=== PATIENT | female | born 1950 | race Caucasian/White ===

== ENCOUNTER 2019-07-01 20:25 | Emergency (ER) | payer OTHER, BC ==
[~2019-07-01] VITALS: Ht 157.5 cm; Wt 86.2 kg
[2019-07-01 21:50] LABS: BASOPHILS 0.8 % (0.0-2.0); EOSINOPHILS 0.3 % (0.0-3.0); HEMATOCRIT 38.7 % (37.0-47.0); HEMOGLOBIN 13.1 gm/dL (12.0-15.0); LYMPHOCYTES 44.1 % (24.0-44.0); MCH 28.7 pg (26.0-34.0); MCHC 33.8 g/dL (28.0-37.0); MCV 84.7 fL (80.0-100.0); MONOCYTES 7.6 % (1.0-8.0); PLATELET COUNT 162 thou/uL (150-400); POLYS 47.2 % (36.0-66.0); RBC 4.57 mil/uL (4.20-5.00); RDW 15.3 % (10.5-14.5); WBC 8.4 thou/uL (4.0-11.0)
[2019-07-01 21:51] LABS: CALCIUM 8.7 mg/dL (8.5-10.1); CREATININE 1.4 mg/dL (0.6-1.0); POTASSIUM 3.6 mmol/L (3.5-5.1)
[2019-07-01] MEDS ORDERED: LEVOXYL112 MCG PO (22:01)
[2019-07-01] MEDS ORDERED: LOPRESSOR50 PO (22:01)
[2019-07-01] MEDS ORDERED: IBUPROFEN 800800 M1 PO (22:02)
[2019-07-01] MEDS ORDERED: ZOCOR20 MG PO (22:02)
[2019-07-01] MEDS ORDERED: POTASSIUM20 PO (22:03)
[2019-07-01] MEDS ORDERED: LASIX 20 MG TAB20 MG PO (22:03)
[2019-07-01 23:07] VITALS: BP 116/59
== END 2019-07-01 23:08 | disposition home or self-care (01) ==
LOC: ER 20:25
PROVIDERS: Emergency Medicine
DX: G43.909 Migraine, unspecified, not intractable, without status migrainosus (principal); R19.7 Diarrhea, unspecified; I10 Essential (primary) hypertension; E78.00 Pure hypercholesterolemia, unspecified; E03.9 Hypothyroidism, unspecified; Z96.651 Presence of right artificial knee joint; Z98.890 Other specified postprocedural states; Z88.2 Allergy status to sulfonamides; Z91.048 Other nonmedicinal substance allergy status; Z88.1 Allergy status to other antibiotic agents